=== PATIENT | male | born 1960 | race Caucasian/White ===

== ENCOUNTER → 2020-01-27 14:51 | Outpatient (BNVA) | payer OTHER, SELFPAY | PROVIDERS: Family Provider Family Medicine; Visit Provider Nurse Practitioner Family | DX: Z20.828 Contact with and (suspected) exposure to other viral communicable diseases (principal); J06.9 Acute upper respiratory infection, unspecified; R43.0 Anosmia | CPT/HCPCS: 87635 ==

== ENCOUNTER 2020-01-31 18:43 | Inpatient (IN) | payer OTHER, SELFPAY ==
[2020-01-31] VITALS (7 sets, daily range): BP systolic 100–130; BP diastolic 57–83; PULSE 61–87; RESP 16–27; TEMP 36.9–37.8; O2SAT 91–96; BMI 25.7
--- NOTE | 2020-01-31 19:23 | ECG_ITS ---
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 Measurements Intervals [place] Rate: 98 P: 37 ID: [id number] QRS: 1 QRSD: 93 T: 9 QT: 323 QTc: 413 Interpretive Statements SINUS RHYTHM Compared to ECG 06/22/2015 21:52:47 No significant changes Electronically Signed On 02-01-2020 8:38:32 TRANSPORT CONDUCTOR by Amanda Nunez M.D. [email or web address]
--- NOTE | 2020-01-31 19:23 | XRR_ITS ---
PROCEDURE INFORMATION: Exam: XR Chest, 1 View Exam date and time: 01/31/2020 7:31 PM Age: 59 years old Clinical indication: Shortness of breath; Additional info: SOB, covid + TECHNIQUE: Imaging protocol: XR of the chest Views: 1 view. COMPARISON: CR Chest 1 [place] [id number] 06/22/2015 10:11 PM FINDINGS: Lungs: Bilateral ground-glass infiltrates, consistent with nonspecific viral pneumonia. Pleural space: No pleural effusion. No pneumothorax. Heart/Mediastinum: No cardiomegaly. Bones/joints: Degenerative spine changes are noted. XR/XR chest 1V portable [id number] IMPRESSION: Bilateral ground-glass infiltrates, consistent with nonspecific viral pneumonia. This is new when compared to the previous study.
--- NOTE | 2020-01-31 19:26 | W.ED.COVID ---
HPI - COVID General: Chief Complaint: COVID symptoms Stated Complaint: GENERAL MALAISE/ COVID + Time Seen by Provider: 01/31/20 19:11 Source: patient Mode of arrival: EMS Limitations: no limitations Triage information: Has fever, cough or shortness of breath. Exposure to COVID + person last 14 days History of Present Illness: HPI Narrative: Patient is a 59-year-old male who lives at home alone and who started feeling ill 1 week ago. His complaints include body aches, cough, generalized weakness, and 2 episodes of syncope, once yesterday and once 3 days ago. Because he says he has been feeling worse every day he came here to be evaluated. 4 days ago he tested positive for COVID-19. complaint: known COVID positive Prior covid testing: yes, results known COVID 19 common symptoms: positive fever(s), cough, dyspnea, loss of sense of smell and/or taste and nasal congestion; negative headache(s), nausea or vomiting Onset (ago): day(s) (7) Severity: moderate COVID Results: SARS-CoV-2 RNA (RT-PCR) Detected (NOT DETECTED) A 01/27/20 14:51 01/27/20 Review of Systems General: Reports: 10 or more systems reviewed and unremarkable except in HPI and below Const: Reports: fever(s) Eyes: Denies: change in vision or blurry vision ENMT: Reports: nasal congestion Card: Denies: palpitations, irregular heart rhythm, edema or swelling of feet/ankles Resp: Reports: dyspnea GI: Denies: abdominal pain, nausea or vomiting : Denies: flank pain, dysuria, urinary frequency, urinary urgency or urinary hesitancy Musc: Denies: neck pain, back pain or extremity swelling Skin/Breast: Denies: rash, pruritus or erythema Neuro: Denies: headache(s), numbness in extremities or weakness in extremities Endo: Denies: polyuria, polydipsia or tired all the time PFS ED PFSH: Medical History (Updated 02/01/20 @ 00:20 by Joesph Armendariz MD, [facility] [place]) No pertinent past medical history Surgical History (Updated 01/31/20 @ 22:32 by Jackson Donnelly MD) No pertinent past surgical history Family History (Updated 01/31/20 @ 22:32 by Jackson Donnelly MD) Father Family history of premature coronary artery disease Father had IA in his 40s Social History (Updated 01/31/20 @ 22:33 by Jackson Donnelly MD) Smoking and tobacco status: never smoked Alcohol intake: never Substance/Drug Use: never Lives independently: Yes Housing: House Physical Exam Const: COMMON NORMALS: no acute distress, average body habitus, patient oriented x3, no limitations, healthy appearing, alert and well nourished Neck/C-Spine: COMMON NORMALS: no meningeal signs and no JVD Resp: COMMON NORMALS: normal respiratory effort, No retractions, No use of accessory muscles, clear to auscultation bilaterally and percussion normal AUSCULTATION: clear to auscultation bilaterally PERCUSSION: percussion normal Cardio: COMMON NORMALS: no JVD, regular rate, regular rhythm, S1 normal heart sound present, S2 normal heart sound present, No gallops present (Cardio), No clicks present (Cardio), No murmurs present (Cardio), No rub (Cardio) and Peripheral pulses 2+ throughout RATE: regular rate RHYTHM: regular rhythm HEART SOUNDS: S1 normal heart sound present and S2 normal heart sound present PERIPHERAL PULSES: Peripheral pulses 2+ throughout GI: COMMON NORMALS: Normal to inspection, nondistended, normoactive bowel sounds present, Soft to palpation, non-tender, No hepatosplenomegaly present, no masses and no bruits PALPATION: Yes Soft to palpation and Yes No hepatosplenomegaly present Extremity: COMMON NORMALS: normal to inspection, full ROM, capillary refill normal, no calf tenderness and no pedal edema Neuro: COMMON NORMALS: patient oriented x3 SENSORIUM/ORIENTATION: Yes alert MENINGEAL SIGNS: Yes no meningeal signs Skin: COMMON NORMALS: no rashes or lesions noted, no wounds, turgor normal, no jaundice, no petechiae and no mottling GENERAL SKIN EXAM: no rashes or lesions noted and turgor normal Course ED course: 59-year-old male with COVID-19. When he presented to the emergency department he was hypoxic. He states he has had 2 syncopal episodes this week. Evaluation here shows he has the typical findings on imaging for Covid pneumonia, his procalcitonin is also elevated meaning he may have some superimposed bacterial pneumonia on top of this. I think the patient will benefit from inpatient stay as he is requiring oxygen and he is admitted for further evaluation and management. I discussed his lab and imaging findings with him as well as the plan for admission. He voiced understanding and is in agreement with the plan. Consultations: Consultation #1: Discussed the patient with Dr. Donnelly and he kindly accepted the patient to his service. Time: 21:30 Vital Signs: Vital signs: Vital Signs Temperature 98.5 F 01/31/20 23:00 Pulse Rate 82 01/31/20 23:00 Respiratory Rate 19 H 01/31/20 23:00 Blood Pressure 130/83 01/31/20 23:00 Pulse Oximetry 96 01/31/20 23:00 MDM - COVID MDM Narrative: Medical decision making narrative: Patient with COVID pneumonia. The patient has been ill for about 7 days and has had 2 syncopal episodes this week. He was noted to be hypoxic in the ED and required oxygen supplementation via nasal cannula. He has elevated inflammatory markers. He was given a dose of IV dexamthasone and remdesivir and ceftriaxone and is admitted to the hospital for further evaluation and management. Medical Records: Attestation: I reviewed the patient's medical records. Lab Data: Attestation: I reviewed the patient's lab results. Labs: Lab Results 01/31/20 01/31/20 01/31/20 Range/Units 19:39 19:39 19:39 WBC 11.5 H (4.0-10.0) 10^3/ uL RBC 4.81 (4.1-5.3) 10^6/u L Hgb 15.3 (11.7-16.6) g/dL Hct 45.4 (42.0-52.0) % MCV 94.4 H (80-94) fL MCH 31.8 (28.0-34.0) pg MCHC 33.7 (30.0-36.0) g/dL RDW 12.8 (12.1-15.1) % Plt Count 204 (130-400) 10^3/c mm MPV 10.0 (7.4-10.4) fL Neut % (Auto) 88.7 % Lymph % (Auto) 5.1 % Lanier % (Auto) 5.3 % Eos % (Auto) 0.3 % Baso % (Auto) 0.3 % Neut # (Auto) 10.16 H (1.8-7.7) 10^3/u L Lymph # (Auto) 0.6 L (0.8-4.8) 10^3/u L Lanier # (Auto) 0.6 (0.2-0.9) 10^3/u L Eos # (Auto) 0.0 (0.0-0.8) 10^3/u L Baso # (Auto) 0.0 (0.0-0.1) 10^3/u L Nucleated RBC % (a uto) 0 % Nucleated RBCs # 0.0 /100WBC D-Dimer 2.83 H (0-0.59) ug/mIFE U Specimen Type Sample Site ABG pH (7.35-7.45) ABG pCO2 (35-45) mmHg ABG pO2 (80.0-100.0) mmH g ABG HCO3 (22-26) mmol/L ABG Base Excess (-2.0-2.0) mmol/ L Jordy Test Hematocrit (42-52) % O2 Delivery Device [employer] ID Sodium 129 L (136-145) mmol/L Potassium 4.1 (3.5-5.1) mmol/L Chloride 97 L (98-107) mmol/L Carbon Dioxide 19 L (22-29) mmol/L Anion Gap 17.1 (5-19) BUN 22 H (6-20) mg/dL Creatinine 1.0 (0.7-1.2) mg/dL GFR Calculation 76.7 L (90-130) mL/min Glucose 112 (65-115) mg/dL Calculated Osmolal ity 272 L (285-295) mOsm/k g Lactic Acid (0.5-2.2) mmol/L Calcium 8.2 L (8.5-10.5) mg/dL Total Bilirubin 0.4 (0.15-1.2) mg/dL AST 70 H (0-40) U/L ALT 68 H (0-41) U/L Alkaline Phosphata se 42 (40-130) IU/L Troponin T Gen 5 n g/L (0-15) ng/L C-Reactive Protein 176.0 H (0.0-4.9) mg/L Total Protein 5.8 L (6.6-8.7) g/dL Albumin 3.0 L (3.5-5.2) g/dL Globulin 2.8 (1.3-4.6) g/dL Procalcitonin 3.10 H (0-0.5) ng/mL 01/31/20 01/31/20 01/31/20 Range/Units 19:39 19:39 19:55 WBC (4.0-10.0) 10^3/ uL RBC (4.1-5.3) 10^6/u L Hgb (11.7-16.6) g/dL Hct (42.0-52.0) % MCV (80-94) fL MCH (28.0-34.0) pg MCHC (30.0-36.0) g/dL RDW (12.1-15.1) % Plt Count (130-400) 10^3/c mm MPV (7.4-10.4) fL Neut % (Auto) % Lymph % (Auto) % Lanier % (Auto) % Eos % (Auto) % Baso % (Auto) % Neut # (Auto) (1.8-7.7) 10^3/u L Lymph # (Auto) (0.8-4.8) 10^3/u L Lanier # (Auto) (0.2-0.9) 10^3/u L Eos # (Auto) (0.0-0.8) 10^3/u L Baso # (Auto) (0.0-0.1) 10^3/u L Nucleated RBC % (a uto) % Nucleated RBCs # /100WBC D-Dimer (0-0.59) ug/mIFE U Specimen Type Arterial Sample Site Radial, left ABG pH 7.47 H (7.35-7.45) ABG pCO2 30.4 L (35-45) mmHg ABG pO2 63.9 L (80.0-100.0) mmH g ABG HCO3 22.0 (22-26) mmol/L ABG Base Excess -0.6 (-2.0-2.0) mmol/ L Jordy Test Pos Hematocrit 49.3 (42-52) % O2 Delivery Device Room air [employer] ID Harkr Sodium (136-145) mmol/L Potassium (3.5-5.1) mmol/L Chloride (98-107) mmol/L Carbon Dioxide (22-29) mmol/L Anion Gap (5-19) BUN (6-20) mg/dL Creatinine (0.7-1.2) mg/dL GFR Calculation (90-130) mL/min Glucose (65-115) mg/dL Calculated Osmolal ity (285-295) mOsm/k g Lactic Acid 1.3 (0.5-2.2) mmol/L Calcium (8.5-10.5) mg/dL Total Bilirubin (0.15-1.2) mg/dL AST (0-40) U/L ALT (0-41) U/L Alkaline Phosphata se (40-130) IU/L Troponin T Gen 5 n g/L 18 H (0-15) ng/L C-Reactive Protein (0.0-4.9) mg/L Total Protein (6.6-8.7) g/dL Albumin (3.5-5.2) g/dL Globulin (1.3-4.6) g/dL Procalcitonin (0-0.5) ng/mL Imaging Data: CXR: Attestation: I personally reviewed and interpreted this imaging study as follows: Radiologist's impression: [address] [address] XRay Report Signed Patient: Nemesio Carrasco #: [id number] : 2Acct#:[id number] Age/Sex: 59 / MADM Date: 01/31/20 [facility] Attending Dr: Ordering Provider/Ordering MD: Joesph Armendariz MD, [facility] [place] Date of Service: 01/31/20 Procedure(s): XR chest 1V portable [id number] Accession Number(s): [id number] Report Number: [id number] PROCEDURE INFORMATION: Exam: XR Chest, 1 View Exam date and time: 01/31/2020 7:31 PM Age: 59 years old Clinical indication: Shortness of breath; Additional info: SOB, covid + TECHNIQUE: Imaging protocol: XR of the chest Views: 1 view. COMPARISON: CR Chest 1 [place] [id number] 06/22/2015 10:11 PM FINDINGS: Lungs: Bilateral ground-glass infiltrates, consistent with nonspecific viral pneumonia. Pleural space: No pleural effusion. No pneumothorax. Heart/Mediastinum: No cardiomegaly. Bones/joints: Degenerative spine changes are noted. XR/XR chest 1V portable [id number] IMPRESSION: Bilateral ground-glass infiltrates, consistent with nonspecific viral pneumonia. This is new when compared to the previous study. Dictated By:Akbar Solano MD Signed By:Akbar Solano MDSigned Date/Time:01/31/202057 DD/ 56 CTA Chest: Radiologist's impression: [address] [address] [address] Scan Report Signed Patient: Nemesio Carrasco #: [id number] : 2Acct#:[id number] Age/Sex: 59 / MADM Date: 01/31/20 Loc: [facility]/Bed: Attending Dr: Ordering Provider/Ordering MD: Joesph Armendariz MD, [facility] [place] Date of Service: 01/31/20 Procedure(s): CT angio chest PE protcl [id number] Accession Number(s): [id number] Report Number: [id number] PROCEDURE INFORMATION: Exam: CT Angiography Chest With Contrast Exam date and time: 01/31/2020 8:41 PM Age: 59 years old Clinical indication: Shortness of breath; Patient HX: Hypoxic. Elevated ddimer. Covid +; Additional info: Covid +, hypoxia TECHNIQUE: Imaging protocol: Computed tomographic angiography of the chest with intravenous contrast. 3D rendering (Not supervised by radiologist): MIP and/or 3D reconstructed images were created by the technologist. Radiation optimization: All CT scans at this facility use at least one of these dose optimization techniques: automated exposure control; mA and/or kV adjustment per patient size (includes targeted exams where dose is matched to clinical indication); or iterative reconstruction. Contrast material: OMNI 350; Contrast volume: 61 ml; Contrast route: INTRAVENOUS (IV); COMPARISON: CR XR chest 1V portable [id number] 01/31/2020 7:30 PM RADIATION DOSE METRICS: Total DLP (mGy-cm): 551.41 FINDINGS: Pulmonary arteries: Pulmonary arteries are well opacified. Pulmonary arteries are normal in caliber. No filling defects are demonstrated. No evidence of pulmonary embolism. Aorta: Atherosclerosis of the thoracic aorta. No aneurysm or dissection. Lungs: Diffuse bilateral ground-glass pulmonary infiltrates are noted. Pleural space: Minimal bilateral pleural effusions. Heart: No cardiomegaly. No pericardial effusion. Mediastinal space: There is a small hiatal hernia present. Lymph nodes: Nonspecific lymph nodes measuring up to 18 mm in length. Liver: 1.5 cm probable cyst in the left lobe of the liver. Bones/joints: Degenerative spine changes. No acute osseous abnormality. Soft tissues: Unremarkable. CT/CT angio chest PE protcl [id number] IMPRESSION: 1. No evidence of pulmonary embolism. 2. No evidence of aortic dissection. 3. Diffuse bilateral ground-glass pulmonary infiltrates are noted. Commonly reported imaging features of COVID-19 pneumonia are present. Other processes such as influenza pneumonia and organizing pneumonia, as can be seen with drug toxicity and connective tissue disease, can cause a similar imaging pattern. (Reference: Mehul) 4. Minimal bilateral pleural effusions. 5. Mild nonspecific lymphadenopathy. REFERENCES: Mehul Barcenas, et al., Radiological Society of [place] Expert Consensus Statement on Reporting Chest CT Findings Related to COVID-19. Endorsed by the Society of Thoracic Radiology, the [place] [employer], and RSNA. Published May 08, 2019. Radiation Dose CTDIVOL = (mGy): DLP = 551.41 (mGy-cm) Dictated By:Akbar Solano MD Signed By:Akbar Solano MDSigned Date/Time:01/31/202105 DD/ 04 EKG Data: EKG 1: Attestation: I personally reviewed and interpreted this EKG as follows: EKG interpretation date: 01/31/20 EKG interpretation time: 19:54 Prior EKG tracings: not available for review Interpretation: Normal sinus rhythm. Heart rate 98 bpm. Normal axis. No ST changes. 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
[2020-01-31 19:47] LABS: Basophils % 0.3 %; Eosinophils % 0.3 %; Hematocrit 45.4 % (42.0-52.0); Hemoglobin 15.3 g/dL (11.7-16.6); Lymphocytes # 0.6 10^3/uL (0.8-4.8); Lymphocytes % 5.1 %; Mean Corpuscular HGB Conc 33.7 g/dL (30.0-36.0); Mean Corpuscular Hemoglobin 31.8 pg (28.0-34.0); Mean Corpuscular Volume 94.4 fL (80-94); Monocytes # 0.6 10^3/uL (0.2-0.9); Monocytes % 5.3 %; Neutrophils # 10.16 10^3/uL (1.8-7.7); Neutrophils % 88.7 %; Nucleated Red Blood Cells % 0 %; Platelet Count 204 10^3/cmm (130-400); Red Blood Count 4.81 10^6/uL (4.1-5.3); Red Cell Distribution Width 12.8 % (12.1-15.1); White Blood Count 11.5 10^3/uL (4.0-10.0)
[2020-01-31 20:04] LABS: D Dimer 2.83 ug/mIFEU (0-0.59)
[2020-01-31 20:05] LABS: ABG PCO2 30.4 mmHg (35-45); ABG PH Result 7.47 (7.35-7.45); Arterial Blood Gas Hematocrit 49.3 % (42-52); Base Excess ABG -0.6 mmol/L (-2.0-2.0); Blood Gas Allen Test Pos; Blood Gas Operator Identificat HARKR; Blood Gas Sample Site Radial, left; Blood Gas Sample Type Arterial; Oxygen Device ROOM AIR; PO2 ABG 63.9 mmHg (80.0-100.0)
[2020-01-31 20:07] LABS: Lactic Sepsis W/Reflex 1.3 mmol/L (0.5-2.2)
[2020-01-31 20:08] LABS: Troponin T (5th) Once 18 ng/L (0-15)
--- NOTE | 2020-01-31 20:26 | CTR_ITS ---
PROCEDURE INFORMATION: Exam: CT Angiography Chest With Contrast Exam date and time: 01/31/2020 8:41 PM Age: 59 years old Clinical indication: Shortness of breath; Patient HX: Hypoxic. Elevated ddimer. Covid +; Additional info: Covid +, hypoxia TECHNIQUE: Imaging protocol: Computed tomographic angiography of the chest with intravenous contrast. 3D rendering (Not supervised by radiologist): MIP and/or 3D reconstructed images were created by the technologist. Radiation optimization: All CT scans at this facility use at least one of these dose optimization techniques: automated exposure control; mA and/or kV adjustment per patient size (includes targeted exams where dose is matched to clinical indication); or iterative reconstruction. Contrast material: OMNI 350; Contrast volume: 61 ml; Contrast route: INTRAVENOUS (IV); COMPARISON: CR XR chest 1V portable [id number] 01/31/2020 7:30 PM RADIATION DOSE METRICS: Total DLP (mGy-cm): 551.41 FINDINGS: Pulmonary arteries: Pulmonary arteries are well opacified. Pulmonary arteries are normal in caliber. No filling defects are demonstrated. No evidence of pulmonary embolism. Aorta: Atherosclerosis of the thoracic aorta. No aneurysm or dissection. Lungs: Diffuse bilateral ground-glass pulmonary infiltrates are noted. Pleural space: Minimal bilateral pleural effusions. Heart: No cardiomegaly. No pericardial effusion. Mediastinal space: There is a small hiatal hernia present. Lymph nodes: Nonspecific lymph nodes measuring up to 18 mm in length. Liver: 1.5 cm probable cyst in the left lobe of the liver. Bones/joints: Degenerative spine changes. No acute osseous abnormality. Soft tissues: Unremarkable. CT/CT angio chest PE protcl [id number] IMPRESSION: 1. No evidence of pulmonary embolism. 2. No evidence of aortic dissection. 3. Diffuse bilateral ground-glass pulmonary infiltrates are noted. Commonly reported imaging features of COVID-19 pneumonia are present. Other processes such as influenza pneumonia and organizing pneumonia, as can be seen with drug toxicity and connective tissue disease, can cause a similar imaging pattern. (Reference: Mehul) 4. Minimal bilateral pleural effusions. 5. Mild nonspecific lymphadenopathy. REFERENCES: Mehul Barcenas et al., Radiological Society of [place] Expert Consensus Statement on Reporting Chest CT Findings Related to COVID-19. Endorsed by the Society of Thoracic Radiology, the [place] [employer], and RSNA. Published May 08, 2019. Radiation Dose CTDIVOL = (mGy): DLP = 551.41 (mGy-cm)
[2020-01-31 20:31] LABS: Alanine Aminotransferase 68 U/L (0-41); Alkaline Phosphatase 42 IU/L (40-130); Anion Gap 17.1 (5-19); Aspartate Amino Transferase 70 U/L (0-40); Blood Urea Nitrogen 22 mg/dL (6-20); Calcium 8.2 mg/dL (8.5-10.5); Carbon Dioxide 19 mmol/L (22-29); Chloride 97 mmol/L (98-107); Globulin 2.8 g/dL (1.3-4.6); Glomerular Filtration Rate 76.7 mL/min (90-130); Glucose 112 mg/dL (65-115); Osmolality Calculated 272 mOsm/kg (285-295); Potassium 4.1 mmol/L (3.5-5.1); Sodium 129 mmol/L (136-145); Total Bilirubin 0.4 mg/dL (0.15-1.2); Total Protein 5.8 g/dL (6.6-8.7)
[2020-01-31] MEDS: iohexol 350 mg/mL 100 mL Btl IV (20:42)
--- NOTE | 2020-01-31 21:22 | PC.NURSE ---
waiting on pharmacy to bring meds
[2020-01-31] MEDS: remdesivir 200 MG in sodium chloride 0.9% (100 ml) 100 ML 100 MG IV (21:29)
[2020-01-31] MEDS: dexamethasone 4 mg/mL INJ 6 MG IVP (21:29)
--- NOTE | 2020-01-31 22:09 | P.HP_ITS ---
Providers/Chief Complaint Admitting Physician: Jackson Donnelly MD Primary Care Provider: Librado Lares Chief Complaint: GENERAL MALAISE/ COVID + History of Present Illness Nemesio Carrasco is a 59 year old male tested positive for COVID-19 on 01/21 at [facility], since then he has been in quarantine at home, initially he developed myalgias, diarrhea which have resolved, not on Decadron or remdesivir, did not get any antibodies as well presented today with chief complaint of syncope. Patient is stating that he had total 2 syncopal events, one on Monday and second today. First episode took place when he was outside throwing garbage on his way towards his truck he started experiencing recurrent bouts of cough and passed out and his neighbor helped him out he did not experience any chest pain or warning symptoms. Second episode happened today when he was in the bathroom after he was done voiding urine he again experienced multiple bouts of cough and passed out, he called towards his bed and called for help. This time again he did not notice any warning symptoms no chest pain, blurry vision, headache or palpitations. No previous history of PR CHF stroke or cancer. He has no other medical surgical history. Does not smoke or drink alcohol. Of note his father in his 40s secondary to PR. Diagnosis in the ER revealed hypoxic respiratory failure requiring 3 to nasal cannula, low-grade temperature, soft systolic blood pressure 100 mmHg, high D-dimer with negative PE COVID-19 changes on lung parenchymal imaging, EKG showing sinus rhythm Review of Systems Const: Denies: fever(s) or body aches Eyes: Denies: change in vision ENMT: Denies: throat pain Card: Reports: syncope and dyspnea on exertion; Denies: chest pain Resp: Reports: dyspnea and non-productive cough GI: Denies: abdominal pain : Denies: flank pain Musc: Denies: neck pain Skin/Breast: Denies: rash Neuro: Denies: headache(s) Psych: Denies: anxiety Endo: Denies: polyuria Davian/Lymph: Denies: easy bruising All/Imm: Denies: urticaria Medications/Allergies Home Medications Medication Instructions Recorded Confirmed Last Taken Type ondansetron HCl 4 mg tablet 4 mg PO Q6H PRN 5 Days #20 tab 01/27/20 01/31/20 01/30/20 Rx ascorbic acid (vitamin C) [Vitamin 500 mg PO PRN 01/31/20 01/31/20 01/28/20 History C] lisinopril 10 mg PO DAILY@07 01/31/20 01/31/20 01/30/20 History omeprazole [Prilosec] 20 mg PO DAILY PRN 01/31/20 01/31/20 Unknown History tadalafil 20 mg PO PRN 01/31/20 01/31/20 Unknown History Allergies Allergy/AdvReac Type Severity Reaction Status Date / Time codeine Allergy passed out Verified 01/31/20 19:40 PFSH Acute PFSH: Medical History (Updated 01/31/20 @ 22:34 by Jackson Donnelly MD) No pertinent past medical history Surgical History (Updated 01/31/20 @ 22:32 by Jackson Donnelly MD) No pertinent past surgical history Family History (Updated 01/31/20 @ 22:32 by Jackson Donnelly MD) Father Family history of premature coronary artery disease Father had PR in his 40s Social History (Updated 01/31/20 @ 22:33 by Jackson Donnelly MD) Smoking and tobacco status: never smoked Alcohol intake: never Substance/Drug Use: never Lives independently: Yes Housing: House Vitals/I&O/Wt Last Vital Signs Temp 100.1 F H 01/31/20 18:49 Pulse 83 01/31/20 22:00 Resp 22 H 01/31/20 22:00 BP 100/73 01/31/20 20:28 Pulse Ox 96 01/31/20 22:00 Weight last 48 hrs Weight 86.183 kg Physical Exam Narrative: EXAM NARRATIVE: Middle-age male appears younger than stated age Well-hydrated, well-built No active respiratory distress Currently saturating 3 to nasal cannula 92%, his oxygen level dropped to 88% when I turned off his oxygen No conversational dyspnea S1, S2 sinus rhythm No active respiratory distress no audible wheezing Abdomen soft nontender bowel sound present Lower extremity no edema gangrene ulcer Lower extremity has mild bruises and laceration otherwise no active cellulitis Appropriate mood and affect EOMI, PERRLA no neurological deficit Data : 01/31/20 19:39 01/31/20 19:39 A&P Assessment and plan (1) Syncope and collapse: Status: Acute (2) COVID-19: Status: Acute Additional A&P Information Acute hypoxic respiratory failure Antipneumonia no signs of PE Currently requiring 2 to nasal cannula We will start Decadron and remdesivir Ventolin, Robitussin for cough Syncope Had 2 episodes after severe bouts of coughing This most likely is coughing induced syncope however has family history of sudden , his father in his 40s which she is attributing to PR, will request echo in the morning Currently EKG showing sinus rhythm he is not complaining of any chest pain or shortness of breath Hold lisinopril until hocum ruled out Full code Regular diet DVT prophylaxis Lovenox Attestations Medical Necessity Statement*: Anticipating discharge in less than 48 hours , n eed echo to rule out cause of syncope most likely his cough and use requiring oxygen 3L COVID-19 pneumonia Time Spent in Patient Care: (>than 50% of time spent in counselling and/or direct pt care on unit) . 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
[2020-01-31] MEDS: sodium chloride 0.9% 1,000 ML 75 ML IV (23:27)
[2020-01-31] MEDS: cefTRIAXone 2,000 MG in sodium chloride 0.9% (plus) 50 ML 100 MG IV (23:28)
[2020-02-01] VITALS (7 sets, daily range): BP systolic 113–137; BP diastolic 77–89; PULSE 74–80; RESP 15–20; TEMP 36.6–37.4; O2SAT 87–96
[2020-02-01 00:33] LABS: Urine Random Sodium 13 mmol/L
[2020-02-01 04:54] LABS: Basophils % 0.2 %; Hematocrit 48.2 % (42.0-52.0); Hemoglobin 16.2 g/dL (11.7-16.6); Lymphocytes # 0.5 10^3/uL (0.8-4.8); Lymphocytes % 4.1 %; Mean Corpuscular HGB Conc 33.6 g/dL (30.0-36.0); Mean Corpuscular Hemoglobin 32.5 pg (28.0-34.0); Mean Corpuscular Volume 96.8 fL (80-94); Mean Platelet Volume 10.3 fL (7.4-10.4); Monocytes # 0.3 10^3/uL (0.2-0.9); Monocytes % 2.5 %; Neutrophils # 10.68 10^3/uL (1.8-7.7); Neutrophils % 92.6 %; Nucleated Red Blood Cells % 0 %; Platelet Count 239 10^3/cmm (130-400); Red Blood Count 4.98 10^6/uL (4.1-5.3); Red Cell Distribution Width 12.9 % (12.1-15.1); White Blood Count 11.5 10^3/uL (4.0-10.0)
[2020-02-01] MEDS: levoFLOXacin 750 mg Tablet PO (05:42)
[2020-02-01 06:17] LABS: Anion Gap 17.3 (5-19); Blood Urea Nitrogen 18 mg/dL (6-20); C Reactive Protein 247.5 mg/L (0.0-4.9); Calcium 9.1 mg/dL (8.5-10.5); Carbon Dioxide 21 mmol/L (22-29); Chloride 98 mmol/L (98-107); Glomerular Filtration Rate 76.7 mL/min (90-130); Glucose 153 mg/dL (65-115); Osmolality Calculated 279 mOsm/kg (285-295); Potassium 4.3 mmol/L (3.5-5.1); Sodium 132 mmol/L (136-145)
[2020-02-01] MEDS: dexamethasone 4 mg Tablet 6 MG PO (08:34)
[2020-02-01 09:54] LABS: Lactate Dehydrogenase 412 U/L (135-225)
--- NOTE | 2020-02-01 12:11 | PM.PN ---
Subjective Subjective: Interval history: is still complaining of generalized weakness, loss of appetite, fatigue ,nausea. Post admission he has remained afebrile, is requiring 2 L oxygen, to maintain a saturation greater than 90%. Other vitals and labs have been reviewed. Medications: Reviewed: Yes Vitals/I&O/Wt Last Vital Signs Temp 97.8 F 02/01/20 11:47 Pulse 76 02/01/20 11:47 Resp 15 02/01/20 11:47 BP 125/87 02/01/20 11:47 Pulse Ox 94 02/01/20 11:47 01/31/20 02/01/20 02/01/20 22:59 06:59 14:59 Intake Total 100 / 100 240 / 240 Output Total 600 / 600 Balance -500 / -500 240 / 240 Weight last 48 hrs Weight 86.183 kg Physical Exam Const: COMMON NORMALS: patient oriented x3 HENMT: COMMON NORMALS: normocephalic, atraumatic and hearing grossly normal bilaterally HEAD & SCALP: normocephalic and atraumatic Chest: COMMONS NORMALS: normal inspection of the chest CHEST: Yes Symmetrical chest wall rise Resp: COMMON NORMALS: normal respiratory effort and clear to auscultation bilaterally EFFORT & INSPECTION: Yes symmetric chest movement AUSCULTATION: clear to auscultation bilaterally Cardio: COMMON NORMALS: regular rate, regular rhythm, S1 normal heart sound present, S2 normal heart sound present, No gallops present (Cardio), No murmurs present (Cardio), No rub (Cardio) and Peripheral pulses 2+ throughout RATE: regular rate RHYTHM: regular rhythm HEART SOUNDS: S1 normal heart sound present and S2 normal heart sound present PERIPHERAL PULSES: Peripheral pulses 2+ throughout GI: COMMON NORMALS: Normal to inspection, nondistended, normoactive bowel sounds present, Soft to palpation, non-tender, No hepatosplenomegaly present and no masses AUSCULTATION: Yes normoactive bowel sounds PALPATION: Yes Soft to palpation and Yes No hepatosplenomegaly present RECTAL EXAM: Yes deferred Extremity: COMMON NORMALS: no clubbing, cyanosis or edema and no pedal edema Neuro: COMMON NORMALS: patient oriented x3 Data : 02/01/20 04:21 02/01/20 04:21 A&P Assessment and plan (1) Pneumonia due to 2019 novel coronavirus: remdesivir 100 mg every 24 hours dexamethasone 6 mg IV daily Discontinued levofloxacin 750 mg p.o. daily. Start ceftriaxone 1 mg IV every 24 hours Start azithromycin 500 mg IV daily. Trend cytokine storm markers (D-dimer, CRP, ferritin, IL-6) Continue Lovenox 40 subcu daily. 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
[2020-02-01] MEDS: azithromycin 500 MG in sodium chloride 0.9% 250 ML 250 MG IV (16:01)
[2020-02-01] MEDS: sodium chloride 0.9% 1,000 ML 75 ML IV (16:04)
[2020-02-01] MEDS: remdesivir 100 MG in sodium chloride 0.9% (100 ml) 100 ML IV (18:19)
--- NOTE | 2020-02-01 18:24 | PC.NURSE ---
shift summary pt has had a good appetite, drinks plenty of fluids, up ad lynsey, with 2l n/c, no shortness of breath per pt this shift.
[2020-02-01] MEDS: cefTRIAXone 1,000 MG in sodium chloride 0.9% (plus) 50 ML 100 MG IV (21:33)
--- NOTE | 2020-02-01 22:45 | USCV_ITS ---
Nemesio Carrasco Age: 59 Gender: M : 1960 Exam Date: 02/01/2020 16:13 Ordering Phys: Jackson Donnelly MD Technologist: Lisa Blas Exam Location: [facility] [place] Indication: R/O HOCM, Syncope BP: 113 / 79 HR: 81 Rhythm: Sinus Technical Quality: Fair MEASUREMENTS (Male / Female) Normal Values 2D ECHO LV Diastolic Diameter PLAX 4.0 cm 4.2 - 5.9 / 3.9 - 5.3 cm LV Systolic Diameter PLAX 2.7 cm LV Chamber Size 3.2 cm IVS Diastolic Thickness 1.5 cm 0.6 - 1.0 / 0.6 - 0.9 cm IVS Systolic Thickness 2.0 cm LVPW Diastolic Thickness 1.1 cm 0.6 - 1.0 / 0.6 - 0.9 cm LVPW Systolic Thickness 1.3 cm RV Chamber Size 3.4 cm LVOT Diameter 2.1 cm LV Ejection Fraction 2D Teich 63.7 % LA Diameter 2.4 cm LA Width 2.1 cm LA Height 4.4 cm RA Width 2.0 cm RA Height 4.6 cm Aorta at Sinotubular Diameter 2.7 cm M-MODE LV Diastolic Diameter MM 5.4 cm 4.2 - 5.9 / 3.9 - 5.3 cm LV Systolic Diameter MM 3.7 cm LV Ejection Fraction MM Teich 60.3 % IVS Diastolic Thickness MM 0.9 cm 0.6 - 1.0 / 0.6 - 0.9 cm IVS Systolic Thickness MM 1.6 cm LVPW Diastolic Thickness MM 1.0 cm 0.6 - 1.0 / 0.6 - 0.9 cm LVPW Systolic Thickness MM 1.3 cm RV Diastolic Diameter MM 3.1 cm Aortic Annulus Diameter 3.4 cm LA Ao Ratio MM 1.0 MV E Point Septal Separation 0.7 cm DOPPLER AV Peak Velocity 103.0 cm/s LVOT Peak Velocity 92.0 cm/s AV Area Cont Eq vti 2.9 cm squared AV Area Cont Eq pk 3.2 cm squared MV Area PHT 4.3 cm squared Mitral E to A Ratio 0.8 MV E' Velocity 31.0 cm/s Mitral E to MV E' Ratio 8.2 Mitral E to LV E' Lateral Ratio 8.1 Mitral E to LV E' Septal Ratio 8.5 TR Peak Velocity 220.0 cm/s TR Peak Gradient 19.4 mmHg TV Peak E Velocity 49.0 cm/s Right Atrial Pressure 3.0 mmHg Pulmonary Artery Systolic Pressu 22.4 mmHg PV Peak Velocity 50.0 cm/s RV Acceleration Time 0.1 s RV Ejection Time 0.2 s RV AcT/ET 0.2 FINDINGS Left Ventricle Normal left ventricular size, systolic function and wall thickness, with no regional wall motion abnormalities. Left ventricular ejection fraction is estimated at 65 %. Grade II diastolic dysfunction, moderately elevated filling pressures. Right Ventricle Normal right ventricular size and systolic function. Right ventricular systolic pressure 22.4 mmHg. Right Atrium Normal right atrial size. Right atrial pressure estimated at 3 mm Hg. Left Atrium Upper normal left atrial size. Mitral Valve Structurally normal mitral valve. No mitral valve stenosis. Trace mitral valve regurgitation. Aortic Valve Structurally normal trileaflet aortic valve. No aortic valve stenosis. No aortic valve regurgitation. No aortic valve regurgitation. Tricuspid Valve Structurally normal tricuspid valve. Trace tricuspid valve regurgitation. Pulmonic Valve Pulmonic valve not well visualized. No pulmonary valve stenosis. Trace pulmonary valve regurgitation. Pericardium No pericardial effusion. Aorta Normal size aortic root and ascending aorta. Normal sized inferior vena cava. CONCLUSIONS 1. Normal left ventricular size, systolic function and wall thickness, with no regional wall motion abnormalities. Left ventricular ejection fraction is estimated at 65 %. Grade II diastolic dysfunction, moderately elevated filling pressures. 2. Normal right ventricular size and systolic function. 3. Normal pulmonary artery pressure. 4. No significant valvular abnormality. 5. No prior similar studies to compare. Amanda Nunez MD (Electronically Signed) Final Date: 01 February 2020 21:49 S
[2020-02-02] VITALS: BP 129/88; PULSE 87; RESP 18; TEMP 36.7; O2SAT 93
[2020-02-02 04:00] VITALS: BP 128/83; PULSE 73; RESP 18; TEMP 36.5; O2SAT 93
[2020-02-02 05:39] LABS: Basophils % 0.1 %; Hematocrit 40.7 % (42.0-52.0); Hemoglobin 13.8 g/dL (11.7-16.6); Lymphocytes # 0.5 10^3/uL (0.8-4.8); Lymphocytes % 3.6 %; Mean Corpuscular HGB Conc 33.9 g/dL (30.0-36.0); Mean Corpuscular Hemoglobin 32.6 pg (28.0-34.0); Mean Corpuscular Volume 96.2 fL (80-94); Mean Platelet Volume 10.2 fL (7.4-10.4); Monocytes # 0.9 10^3/uL (0.2-0.9); Monocytes % 6.1 %; Neutrophils # 13.53 10^3/uL (1.8-7.7); Neutrophils % 89.2 %; Nucleated Red Blood Cells % 0 %; Platelet Count 301 10^3/cmm (130-400); Red Blood Count 4.23 10^6/uL (4.1-5.3); Red Cell Distribution Width 12.8 % (12.1-15.1); White Blood Count 15.2 10^3/uL (4.0-10.0)
[2020-02-02 05:57] LABS: D Dimer 1.82 ug/mIFEU (0-0.59)
[2020-02-02 07:01] VITALS: BP 131/81; PULSE 73; RESP 16; TEMP 36.5; O2SAT 92
[2020-02-02 07:59] LABS: Anion Gap 17.2 (5-19); Blood Urea Nitrogen 23 mg/dL (6-20); C Reactive Protein 105.1 mg/L (0.0-4.9); Calcium 8.4 mg/dL (8.5-10.5); Carbon Dioxide 19 mmol/L (22-29); Chloride 106 mmol/L (98-107); Glomerular Filtration Rate 86.7 mL/min (90-130); Glucose 120 mg/dL (65-115); Osmolality Calculated 291 mOsm/kg (285-295); Potassium 4.2 mmol/L (3.5-5.1); Sodium 138 mmol/L (136-145)
[2020-02-02 08:14] LABS: Ferritin 5043 ng/mL (30-400)
[2020-02-02] MEDS: sodium chloride 0.9% 1,000 ML 75 ML IV (09:52)
[2020-02-02 11:15] VITALS: BP 133/82; PULSE 79; RESP 16; TEMP 36; O2SAT 96
[2020-02-02] MEDS: dexamethasone 4 mg/mL INJ 6 MG IVP (14:49)
[2020-02-02] MEDS: azithromycin 500 MG in sodium chloride 0.9% 250 ML 250 MG IV (14:52)
[2020-02-02 15:06] VITALS: BP 133/83; PULSE 78; RESP 16; TEMP 36.5; O2SAT 92
[2020-02-02] MEDS: remdesivir 100 MG in sodium chloride 0.9% (100 ml) 100 ML IV (17:20)
[2020-02-02 19:26] VITALS: BP 136/84; PULSE 85; RESP 18; TEMP 36.8; O2SAT 93
--- NOTE | 2020-02-02 20:41 | PM.PN ---
Subjective Subjective: Interval history: Patient is currently doing fine. His vitals are stable. No temperature spike, saturating well on 2 L oxygen via nasal cannula, no tachycardia, no tachypnea. Good urine output. Medications: Reviewed: Yes Vitals/I&O/Wt Last Vital Signs Temp 98.2 F 02/02/20 19:26 Pulse 85 02/02/20 19:26 Resp 18 02/02/20 19:26 BP 136/84 02/02/20 19:26 Pulse Ox 93 02/02/20 19:26 02/02/20 02/02/20 02/02/20 06:59 14:59 22:59 Intake Total 1200 / 3570 600 / 600 240 / 840 Output Total 550 / 550 460 / 460 Balance 650 / 3020 600 / 600 -220 / 380 Physical Exam Const: COMMON NORMALS: patient oriented x3 HENMT: COMMON NORMALS: normocephalic and atraumatic HEAD & SCALP: normocephalic and atraumatic Chest: COMMONS NORMALS: normal inspection of the chest CHEST: Yes Symmetrical chest wall rise Resp: COMMON NORMALS: normal respiratory effort and clear to auscultation bilaterally EFFORT & INSPECTION: Yes symmetric chest movement AUSCULTATION: clear to auscultation bilaterally Cardio: COMMON NORMALS: regular rate, regular rhythm, S1 normal heart sound present, S2 normal heart sound present, No gallops present (Cardio), No murmurs present (Cardio), No rub (Cardio) and Peripheral pulses 2+ throughout RATE: regular rate RHYTHM: regular rhythm HEART SOUNDS: S1 normal heart sound present and S2 normal heart sound present PERIPHERAL PULSES: Peripheral pulses 2+ throughout GI: COMMON NORMALS: Normal to inspection, nondistended, normoactive bowel sounds present, Soft to palpation, non-tender, No hepatosplenomegaly present and no masses AUSCULTATION: Yes normoactive bowel sounds PALPATION: Yes Soft to palpation and Yes No hepatosplenomegaly present RECTAL EXAM: Yes deferred Extremity: COMMON NORMALS: no clubbing, cyanosis or edema and no pedal edema Neuro: COMMON NORMALS: patient oriented x3 Data : 02/02/20 05:15 02/02/20 05:15 A&P Assessment and plan (1) Pneumonia due to 2019 novel coronavirus: remdesivir 100 mg every 24 hours dexamethasone 6 mg IV daily Discontinued levofloxacin 750 mg p.o. daily. Start ceftriaxone 1 mg IV every 24 hours Start azithromycin 500 mg IV daily. Trend cytokine storm markers (D-dimer, CRP, ferritin, IL-6) Continue Lovenox 40 subcu daily. Supplemental oxygen to maintain saturation greater 90% Monitor x-ray chest ABG as needed Nebs Status: Acute (2) Acute hypoxemic respiratory failure due to COVID-19: Status: Acute (3) Hypertension: Status: Acute (4) Hyponatremia: Status: Acute Additional A&P Information DVT prophylaxis: Lovenox 40 subcu daily CODE STATUS; full code Disposition: Home Anticipated discharge: 1221 Attestations Medical Necessity Statement*: Patient needs to be in hospital for management of Covid pneumonia. Coding Level of Care Code Acute [place] Inspector for [facility] Diagnoses Pneumonia due to 2019 novel coronavirus U07.1; J12.89 Acute hypoxemic respiratory failure due to COVID-19 U07.1; J96.01 Hypertension I10 Hyponatremia E87.1
[2020-02-02] MEDS: cefTRIAXone 1,000 MG in sodium chloride 0.9% (plus) 50 ML 100 MG IV (21:16)
[2020-02-02] MEDS: lidocaine 2% viscous 15 ML, aluminum-mag hydrox-simethicon 30 ML, sucralfate oral liq 1 GM PO (21:19)
[2020-02-03] VITALS (10 sets, daily range): BP systolic 123–145; BP diastolic 74–88; PULSE 74–91; RESP 18–20; TEMP 36.6–37.1; O2SAT 91–97
[2020-02-03 05:14] LABS: Basophils % 0.1 %; Hematocrit 41.6 % (42.0-52.0); Hemoglobin 14.1 g/dL (11.7-16.6); Lymphocytes # 0.5 10^3/uL (0.8-4.8); Lymphocytes % 3.8 %; Mean Corpuscular HGB Conc 33.9 g/dL (30.0-36.0); Mean Corpuscular Hemoglobin 33.3 pg (28.0-34.0); Mean Corpuscular Volume 98.1 fL (80-94); Mean Platelet Volume 9.7 fL (7.4-10.4); Monocytes # 1.2 10^3/uL (0.2-0.9); Monocytes % 8.8 %; Neutrophils # 11.82 10^3/uL (1.8-7.7); Neutrophils % 86.4 %; Nucleated Red Blood Cells % 0 %; Platelet Count 393 10^3/cmm (130-400); Red Blood Count 4.24 10^6/uL (4.1-5.3); Red Cell Distribution Width 13.1 % (12.1-15.1); White Blood Count 13.7 10^3/uL (4.0-10.0)
[2020-02-03 05:28] LABS: D Dimer 1.94 ug/mIFEU (0-0.59)
[2020-02-03 05:40] LABS: Anion Gap 15.3 (5-19); Blood Urea Nitrogen 20 mg/dL (6-20); C Reactive Protein 54.8 mg/L (0.0-4.9); Calcium 8.3 mg/dL (8.5-10.5); Carbon Dioxide 21 mmol/L (22-29); Chloride 112 mmol/L (98-107); Glomerular Filtration Rate 99.3 mL/min (90-130); Glucose 132 mg/dL (65-115); Osmolality Calculated 302 mOsm/kg (285-295); Potassium 4.3 mmol/L (3.5-5.1); Sodium 144 mmol/L (136-145)
[2020-02-03] MEDS: sodium chloride 0.9% 1,000 ML 75 ML IV (06:00)
[2020-02-03 06:11] LABS: Ferritin 3377 ng/mL (30-400)
--- NOTE | 2020-02-03 12:40 | PM.PN ---
Subjective Subjective: Interval history: Nemesio reports he is still very short of breath with exertion. Otherwise doing some better. Certainly feels better than on admission. Medications: Reviewed: Yes Vitals/I&O/Wt Last Vital Signs Temp 98.7 F 02/03/20 11:13 Pulse 83 02/03/20 11:13 Resp 18 02/03/20 11:13 BP 131/83 02/03/20 11:13 Pulse Ox 97 02/03/20 11:13 02/02/20 02/03/20 02/03/20 22:59 06:59 14:59 Intake Total 240 / 840 1000 / 1840 120 / 120 Output Total 460 / 460 500 / 960 Balance -220 / 380 500 / 880 120 / 120 Physical Exam Narrative: EXAM NARRATIVE: General exam no apparent distress Cardiovascular regular rate and rhythm without murmur Lungs clear no wheezing or crackles Abdomen is soft positive bowel sounds Extremities no cyanosis clubbing or edema Data : 02/03/20 05:03 02/03/20 05:03 A&P Assessment and plan (1) Pneumonia due to 2019 novel coronavirus: Continue remdesivir and dexamethasone Continue Rocephin and a Zithromax Wean oxygen as tolerated Continue Lovenox for DVT prophylaxis Pulmonary toilet as needed Discontinue IV fluids Status: Acute (2) Acute hypoxemic respiratory failure due to COVID-19: Improving Status: Acute (3) Hypertension: Status: Acute (4) Hyponatremia: Status: Acute Additional A&P Information DVT prophylaxis: Lovenox 40 subcu daily CODE STATUS; full code Disposition: Home Anticipated discharge: 1221 Attestations Medical Necessity Statement*: Needs continued hospitalization, for IV steroids, close monitoring secondary to COVID-19 pneumonia. 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
[2020-02-03] MEDS: dexamethasone 4 mg/mL INJ 6 MG IVP (13:44)
[2020-02-03] MEDS: azithromycin 500 MG in sodium chloride 0.9% 250 ML 250 MG IV (13:44)
[2020-02-03] MEDS: remdesivir 100 MG in sodium chloride 0.9% (100 ml) 100 ML IV (17:10)
[2020-02-03] MEDS: cefTRIAXone 1,000 MG in sodium chloride 0.9% (plus) 50 ML 100 MG IV (21:54)
[2020-02-04 03:23] VITALS: BP 140/84; PULSE 74; RESP 18; TEMP 36.7; O2SAT 90
[2020-02-04 04:48] LABS: Basophils % 0.2 %; Hematocrit 41.7 % (42.0-52.0); Hemoglobin 14.2 g/dL (11.7-16.6); Lymphocytes # 0.5 10^3/uL (0.8-4.8); Lymphocytes % 4.4 %; Mean Corpuscular HGB Conc 34.1 g/dL (30.0-36.0); Mean Corpuscular Hemoglobin 33.6 pg (28.0-34.0); Mean Corpuscular Volume 98.8 fL (80-94); Mean Platelet Volume 9.5 fL (7.4-10.4); Monocytes # 1.1 10^3/uL (0.2-0.9); Monocytes % 9.5 %; Neutrophils # 10.09 10^3/uL (1.8-7.7); Neutrophils % 84.3 %; Nucleated Red Blood Cells % 0 %; Platelet Count 432 10^3/cmm (130-400); Red Blood Count 4.22 10^6/uL (4.1-5.3); Red Cell Distribution Width 13.1 % (12.1-15.1)
[2020-02-04 05:05] LABS: D Dimer 2.83 ug/mIFEU (0-0.59)
[2020-02-04 05:26] LABS: Anion Gap 13.2 (5-19); Blood Urea Nitrogen 18 mg/dL (6-20); Calcium 8.2 mg/dL (8.5-10.5); Carbon Dioxide 22 mmol/L (22-29); Chloride 105 mmol/L (98-107); Glomerular Filtration Rate 99.3 mL/min (90-130); Glucose 110 mg/dL (65-115); Osmolality Calculated 285 mOsm/kg (285-295); Potassium 4.2 mmol/L (3.5-5.1); Sodium 136 mmol/L (136-145)
[2020-02-04 05:42] LABS: Ferritin 2740 ng/mL (30-400)
[2020-02-04 07:48] VITALS: BP 139/83; PULSE 79; RESP 18; TEMP 37.1; O2SAT 90
[2020-02-04 09:37] VITALS: PULSE 82; RESP 18; O2SAT 95
--- NOTE | 2020-02-04 10:53 | PM.DCS ---
Discharge Providers Date of Admission: 02/02/20 20:46 Date of Discharge: February 04, 2020 Attending Provider at Admission: Jackson Donnelly MD Attending Provider at Discharge: Beck Meza MD Primary Care Provider: Librado Lares Diagnoses at Discharge Discharge Diagnosis (1) Pneumonia due to 2019 novel coronavirus: Status: Acute (2) Acute hypoxemic respiratory failure due to COVID-19: Status: Acute (3) Hypertension: Status: Acute (4) Hyponatremia: Status: Acute Reason for Visit Reason for Visit: GENERAL MALAISE/ COVID + Hospital Course Hospital Course Nemesio is a 59-year-old white male who presented to the hospital with shortness of breath. He had been diagnosed with Covid on January 21. On evaluation he had radiographic findings consistent with COVID-19 pneumonia. Sodium was slightly low. CTA demonstrated no pulmonary embolism. Echocardiogram demonstrated 2/4 diastolic dysfunction, preserved EF. He was given remdesivir, dexamethasone, and support with pulmonary toilet and oxygen. He did well and was able to be weaned off oxygen on February 02. He was therefore discharged on February 03. He will finish 3 more days of dexamethasone, 14 days of Eliquis, a short course of cefdinir. He will follow-up with primary care provider in approximately 3 days. Home oxygen evaluation prior to discharge. He was instructed to return for any worsening. I discussed the risks and benefits of anticoagulation with him including bleeding. He will be watching for this and return immediately for any concerns. Physical Exam Narrative: EXAM NARRATIVE: General exam no apparent distress Cardiovascular regular rate and rhythm without murmur Lungs clear Abdomen is soft with positive bowel sounds Extremities no cyanosis clubbing or edema Discharge Data Data Completed and Pending: Completed Studies During Hospitalization Category Date Time Status CT angio chest PE protcl [id number] Stat Cat Scan 01/31/20 20:26 Completed XR chest 1V m[place] ble [id number] Stat Exams 01/31/20 19:23 Completed CV echo complete* [id number] Routine Ultrasound 02/01/20 22:45 Completed Pending at discharge Category Date Time Status Osmolality Serum Stat Lab 01/31/20 19:39 Received Osmolality Urine Stat Lab 01/31/20 23:45 Received Labs from last 24 hours 02/04/20 02/04/20 02/04/20 04:33 04:33 04:33 WBC RBC Hgb Hct MCV MCH MCHC RDW Plt Count MPV Neut % (Auto) Lymph % (Auto) Rooks % (Auto) Eos % (Auto) Baso % (Auto) Neut # (Auto) Lymph # (Auto) Rooks # (Auto) Eos # (Auto) Baso # (Auto) Nucleated RBC % (a uto) Nucleated RBCs # D-Dimer 2.83 H Sodium Potassium Chloride Carbon Dioxide Anion Gap BUN Creatinine GFR Calculation Glucose Calculated Osmolal ity Calcium Ferritin 2740 H C-Reactive Protein 44.0 H 02/04/20 02/04/20 04:33 04:33 WBC 12.0 H RBC 4.22 Hgb 14.2 Hct 41.7 L MCV 98.8 H MCH 33.6 MCHC 34.1 RDW 13.1 Plt Count 432 H MPV 9.5 Neut % (Auto) 84.3 Lymph % (Auto) 4.4 Rooks % (Auto) 9.5 Eos % (Auto) 0.0 Baso % (Auto) 0.2 Neut # (Auto) 10.09 H Lymph # (Auto) 0.5 L Rooks # (Auto) 1.1 H Eos # (Auto) 0.0 Baso # (Auto) 0.0 Nucleated RBC % (a uto) 0 Nucleated RBCs # 0.0 D-Dimer Sodium 136 Potassium 4.2 Chloride 105 Carbon Dioxide 22 Anion Gap 13.2 BUN 18 Creatinine 0.8 GFR Calculation 99.3 Glucose 110 Calculated Osmolal ity 285 Calcium 8.2 L Ferritin C-Reactive Protein Vitals: Last Vital Signs Temp 98.8 F 02/04/20 07:48 Pulse 82 02/04/20 09:37 Resp 18 02/04/20 09:37 BP 139/83 02/04/20 07:48 Pulse Ox 95 02/04/20 09:37 Discharge Plan Discharge Condition: Stable Prescriptions: New Eliquis 2.5 mg tablet 2.5 mg PO BID Qty: 28 RF: 0 dexamethasone 6 mg tablet 6 mg PO Q24H Qty: 3 RF: 0 Combivent Respimat 20-100 mcg/actuation Mist 1 puff inhalation QID.RESPIRATORY PRN (Reason: Cough) Qty: 1 RF: 0 cefdinir 300 mg capsule 300 mg PO BID 5 Days Qty: 10 RF: 0 Continued ondansetron HCl [Zofran] 4 mg tablet 4 mg PO Q6H PRN (Reason: nausea and vomiting) 5 Days Qty: 20 RF: 0 Vitamin C 500 mg Tablet 500 mg PO PRN RF: 0 lisinopril 10 mg Tablet 10 mg PO DAILY@07 RF: 0 Prilosec 20 mg Capsule,Delayed Release(Dr/Ec) 20 mg PO DAILY PRN (Reason: Acid Reflux) RF: 0 tadalafil 20 mg tablet 20 mg PO PRN RF: 0 Discharge Orders: Discharge Order (Routine); Ordered 02/04/20 Ordered By: Beck Meza Referrals: [facility] [Outside] (If you decide that you want/need O2 while at home, call [facility]. They can call & request for records from us here at [facility]. ) Librado Lares [Primary Care Provider] - 1-3 days (By telehealth) Discharge Diet: Cardiac Discharge Activity: Increase activity as tolerated Activity Restrictions/Additional Instructions: Home oxygen evaluation prior to discharge Follow-up with primary care provider 3 to 5 days by telehealth visit Follow quarantine instructions as given by health department To discharge with oximeter Monitor your stool for any black, or tarry stools or bright red blood. If this occurs notify your primary care provider. 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
[2020-02-04 11:37] VITALS: BP 130/89; PULSE 82; RESP 18; O2SAT 90
--- NOTE | 2020-02-04 14:17 | PC.NURSE ---
patient given discharge instructions and verbalized understanding of instructions. patient taken to private vehicle via wheelchair by staff. patient's medications delivered to patient via employee pharmacy.
[2020-02-04 14:21] VITALS: BP 130/89; PULSE 82; RESP 18; O2SAT 90
== END 2020-02-04 14:21 | disposition home or self-care (01) | DRG 871 ==
LOC: ER 19:17 → MEDSURG 22:20
PROVIDERS: Internal Medicine; Admitting Provider Internal Medicine; Emergency Provider Family Medicine; PCP Family Medicine; Visit Provider Internal Medicine
DX: A41.9 Sepsis, unspecified organism (principal); U07.1 COVID-19; J12.89 Other viral pneumonia; J96.01 Acute respiratory failure with hypoxia; E87.1 Hypo-osmolality and hyponatremia; R55 Syncope and collapse; Z82.41 Family history of sudden cardiac death
CPT/HCPCS: 12345; 36415; 36600; 71045; 71275; 80048; 80053; 82728; 82803; 83605; 83615; 83930; 83935; 84145; 84300; 84484; 85025; 85378; 86140; 93005; 93306; 94640; 96375; 99283; G0378; J0456; J0696; J1100; J3535; J7030; J7050; J8540; Q9967